=== PATIENT | female | born 1935 | race Caucasian/White ===

== ENCOUNTER 2018-02-21 20:15 | Inpatient (IN) | payer MEDICARE, BC ==
[2018-02-21] MEDS ORDERED: SODIUM CHLORIDE 0.9% 1,000 ML IV STA (20:45)
[2018-02-21] MEDS ORDERED: ONDANSETRON 4 MG/2 ML VIAL IVP STA (20:45)
--- NOTE | 2018-02-21 21:13 | ED ---
General Adult HPI <JeancarlosLam - Last Filed: 02/21/18 22:42> - General Source: patient, family Mode of arrival: wheelchair Limitations: no limitations <Krystin Oliver - Last Filed: 02/21/18 23:00> - General Chief complaint: Shortness of Breath Stated complaint: poss sepsis Time Seen by Provider: 02/21/18 20:27 - History of Present Illness Initial comments: 82-year-old female patient presents to the emergency department today for complaints of generalized weakness and nausea. Patient states that she was treated for pneumonia over the last week with Bactrim, DuoNeb updraft treatments , and prednisone. Patient states that her cough and shortness of breath is better however today she has been feeling increasingly weak and nauseous. Patient denies any current chest pain, shortness of breath, abdominal pain, diarrhea, or constipation. She denies any known fevers or chills. Patient denies any numbness or tingling anywhere. Denies unilateral weakness. She denies headache, blurred vision, or double vision. Patient denies any recent rash, fever, chills, shortness breath, chest pain, abdominal pain, back pain, hematuria, dysuria, urinary urgency, urinary frequency, or any other complaints. (Krystin Oliver) - Related Data Home Medications Medication Instructions Recorded Confirmed Ibuprofen [Motrin Ib] 400 mg PO Q6H PRN 02/21/18 02/21/18 Ipratropium-Albuterol Nebulize 3 ml INHALATION RT-QID PRN 02/21/18 02/21/18 [Duoneb 0.5 mg-3 mg/3 ml Soln] Lisinopril-Hctz 20-25 mg 1 tab PO HS 02/21/18 02/21/18 [Zestoretic 20-25] Simvastatin [Zocor] 10 mg PO HS 02/21/18 02/21/18 Sulfamethox-Tmp 800-160Mg [Bactrim 1 tab PO Q12HR 02/21/18 02/21/18 DS 800-160 mg] Vitamin D(Unknown Dose) 1 tab PO DAILY 02/21/18 02/21/18 Allergies Allergy/AdvReac Type Severity Reaction Status Date / Time No Known Allergies Allergy Verified 02/21/18 20:33 Review of Systems ROS Other: All systems not noted in ROS Statement are negative. <Lam Arshad - Last Filed: 02/21/18 22:42> ROS Other: All systems not noted in ROS Statement are negative. <Krystin Oliver - Last Filed: 02/21/18 23:00> ROS Statement: Those systems with pertinent positive or pertinent negative responses have been documented in the HPI. Past Medical History Past Medical History: Hyperlipidemia, Hypertension History of Any Multi-Drug Resistant Organisms: None Reported Past Surgical History: Adenoidectomy, Appendectomy, Cholecystectomy, Tonsillectomy Additional Past Surgical History / Comment(s): left total knee replacement. ORIF right ankle. Past Psychological History: No Psychological Hx Reported Smoking Status: Never smoker Past Alcohol Use History: None Reported Past Drug Use History: None Reported <Krystin Oliver - Last Filed: 02/21/18 23:00> General Exam Limitations: no limitations General appearance: alert, in no apparent distress, other (This is a well- developed, well-nourished elderly female patient in no acute distress. Vital signs upon presentation are temperature 98.8F, pulse 72, respirations 20, blood pressure 141/73, pulse ox 99% on room air.) Eye exam: Present: normal appearance, PERRL, EOMI. Absent: scleral icterus, conjunctival injection, periorbital swelling ENT exam: Present: normal exam, normal oropharynx, mucous membranes moist Respiratory exam: Present: normal lung sounds bilaterally. Absent: respiratory distress, wheezes, rales, rhonchi, stridor Cardiovascular Exam: Present: regular rate, normal rhythm, normal heart sounds. Absent: systolic murmur, diastolic murmur, rubs, gallop, clicks GI/Abdominal exam: Present: soft, normal bowel sounds. Absent: distended, tenderness, guarding, rebound, rigid Neurological exam: Present: alert, oriented X3, CN II-XII intact Psychiatric exam: Present: normal affect, normal mood Skin exam: Present: warm, dry, intact, normal color. Absent: rash <Krystin Oliver - Last Filed: 02/21/18 23:00> Course <Lam Arshad - Last Filed: 02/21/18 22:42> <Krystin Oliver - Last Filed: 02/21/18 23:00> Vital Signs 02/21/18 02/21/18 20:17 22:16 Temperature 98.8 F Pulse Rate 72 60 Respiratory 20 17 Rate Blood Pressure 141/73 115/52 O2 Sat by Pulse 99 98 Oximetry - Reevaluation(s) Reevaluation #1: 02/21/18 22:42 Patient reevaluated and resting comfortably in bed. Patient and family are updated on results and plan. Case was discussed in detail with Dr. Manzo, who will admit for Dr. bose. (Lam Arshad) Medical Decision Making - Lab Data Result diagrams: 02/21/18 21:07 02/21/18 21:07 <Lam Arshad - Last Filed: 02/21/18 22:42> - Lab Data Result diagrams: 02/21/18 21:07 02/21/18 21:07 - Radiology Data Radiology results: report reviewed, image reviewed <Krystin Oliver - Last Filed: 02/21/18 23:00> - Medical Decision Making 82-year-old female patient presents to the emergency department today for complaints of weakness and nausea. Physical examination is unremarkable. Patient is neurologically intact. Labs reviewed and did show a sodium of 121, chloride of 85, carbon dioxide 18, BUN 22, creatinine 1.2, calcium 10.8, bilirubin 1.4. CK-MB is 3.1. Sodium and chloride findings are acute for the patient. Given patient's symptoms will admit for hyponatremia. We'll provide IV fluids. My attending spoke to Dr. Manzo who agrees to admission. (Krystin Oliver) - Lab Data Lab Results 02/21/18 02/21/18 02/21/18 Range/Units 21:07 21:07 21:07 WBC 9.3 (3.8-10.6) k/uL RBC 4.65 (3.80-5.40) m/uL Hgb 13.8 (11.4-16.0) gm/dL Hct 39.6 (34.0-46.0) % MCV 85.0 (80.0-100.0) fL MCH 29.7 (25.0-35.0) pg MCHC 34.9 (31.0-37.0) g/dL RDW 12.1 (11.5-15.5) % Plt Count 331 (150-450) k/uL Neutrophils % 62 % Lymphocytes % 29 % Monocytes % 7 % Eosinophils % 1 % Basophils % 0 % Neutrophils # 5.7 (1.3-7.7) k/uL Lymphocytes # 2.7 (1.0-4.8) k/uL Monocytes # 0.7 (0-1.0) k/uL Eosinophils # 0.1 (0-0.7) k/uL Basophils # 0.0 (0-0.2) k/uL PT (9.0-12.0) sec INR (<1.2) APTT (22.0-30.0) sec Sodium 121 L (137-145) mmol/L Potassium 4.4 (3.5-5.1) mmol/L Chloride 85 L (98-107) mmol/L Carbon Dioxide 18 L (22-30) mmol/L Anion Gap 18 mmol/L BUN 22 H (7-17) mg/dL Creatinine 1.20 H (0.52-1.04) mg/dL Est GFR (CKD-EPI)AfAm 49 (>60 ml/min/1.73 sqM) Est GFR (CKD-EPI)NonAf 43 (>60 ml/min/1.73 sqM) Glucose 93 (74-99) mg/dL Plasma Lactic Acid Hiram (0.7-2.0) mmol/L Calcium 10.8 H (8.4-10.2) mg/dL Total Bilirubin 1.4 H (0.2-1.3) mg/dL AST 25 (14-36) U/L ALT 25 (9-52) U/L Alkaline Phosphatase 94 (38-126) U/L Total Creatine Kinase 114 (30-135) U/L CK-MB (CK-2) 3.1 H* (0.0-2.4) ng/mL CK-MB (CK-2) Rel Index 2.7 Troponin I <0.012 (0.000-0.034) ng/mL Total Protein 7.2 (6.3-8.2) g/dL Albumin 4.5 (3.5-5.0) g/dL Urine Color Urine Appearance (Clear) Urine pH (5.0-8.0) Ur Specific [place] (1.001-1.035) Urine Protein (Negative) Urine Glucose (UA) (Negative) Urine Ketones (Negative) Urine Blood (Negative) Urine Nitrite (Negative) Urine Bilirubin (Negative) Urine Urobilinogen (<2.0) mg/dL Ur Leukocyte Esterase (Negative) Urine RBC (0-5) /hpf Urine WBC (0-5) /hpf Ur Squamous Epith Cells (0-4) /hpf Urine Bacteria (None) /hpf Urine Mucus (None) /hpf 02/21/18 02/21/18 02/21/18 Range/Units 21:07 21:07 21:07 WBC (3.8-10.6) k/uL RBC (3.80-5.40) m/uL Hgb (11.4-16.0) gm/dL Hct (34.0-46.0) % MCV (80.0-100.0) fL MCH (25.0-35.0) pg MCHC (31.0-37.0) g/dL RDW (11.5-15.5) % Plt Count (150-450) k/uL Neutrophils % % Lymphocytes % % Monocytes % % Eosinophils % % Basophils % % Neutrophils # (1.3-7.7) k/uL Lymphocytes # (1.0-4.8) k/uL Monocytes # (0-1.0) k/uL Eosinophils # (0-0.7) k/uL Basophils # (0-0.2) k/uL PT 10.0 (9.0-12.0) sec INR 1.0 (<1.2) APTT 22.2 (22.0-30.0) sec Sodium (137-145) mmol/L Potassium (3.5-5.1) mmol/L Chloride (98-107) mmol/L Carbon Dioxide (22-30) mmol/L Anion Gap mmol/L BUN (7-17) mg/dL Creatinine (0.52-1.04) mg/dL Est GFR (CKD-EPI)AfAm (>60 ml/min/1.73 sqM) Est GFR (CKD-EPI)NonAf (>60 ml/min/1.73 sqM) Glucose (74-99) mg/dL Plasma Lactic Acid Hiram 1.3 (0.7-2.0) mmol/L Calcium (8.4-10.2) mg/dL Total Bilirubin (0.2-1.3) mg/dL AST (14-36) U/L ALT (9-52) U/L Alkaline Phosphatase (38-126) U/L Total Creatine Kinase (30-135) U/L CK-MB (CK-2) (0.0-2.4) ng/mL CK-MB (CK-2) Rel Index Troponin I (0.000-0.034) ng/mL Total Protein (6.3-8.2) g/dL Albumin (3.5-5.0) g/dL Urine Color Yellow Urine Appearance Clear (Clear) Urine pH 7.0 (5.0-8.0) Ur Specific [place] 1.012 (1.001-1.035) Urine Protein Negative (Negative) Urine Glucose (UA) Negative (Negative) Urine Ketones 1+ H (Negative) Urine Blood Negative (Negative) Urine Nitrite Negative (Negative) Urine Bilirubin Negative (Negative) Urine Urobilinogen 2.0 (<2.0) mg/dL Ur Leukocyte Esterase Small H (Negative) Urine RBC 2 (0-5) /hpf Urine WBC 1 (0-5) /hpf Ur Squamous Epith Cells <1 (0-4) /hpf Urine Bacteria Rare H (None) /hpf Urine Mucus Rare H (None) /hpf - Radiology Data Two-view x-ray of the chest shows no focal airspace opacity, pleural effusion, or pneumothorax. Mediastinal prominence likely due to rotation. The cardiac silhouette size is within normal limits. The osseous structures are intact. Mild multilevel degenerative changes of the thoracic spine are noted. Impression by Dr. Munoz shows no focal airspace disease to suggest pneumonia. Mediastinal prominence likely due to rotation/positioning. (Krystin Oliver) Disposition <Lam Arshad - Last Filed: 02/21/18 22:42> Decision to Admit Reason: Admit from EC Decision Date: 02/21/18 Decision Time: 22:45 <Krystin Oliver - Last Filed: 02/21/18 23:00> Clinical Impression: Hyponatremia, Weakness Disposition: ADMITTED IP TO THIS [facility] Condition: Serious Referrals: Kristyn Morales MD [Primary Care Provider] - 1-2 days
[2018-02-21 21:23] LABS: Basophils % (A) 0 %; Eosinophils # (A) 0.1 k/uL (0-0.7); Eosinophils % (A) 1 %; HCT 39.6 % (34.0-46.0); HGB 13.8 gm/dL (11.4-16.0); Lymphocytes # (A) 2.7 k/uL (1.0-4.8); Lymphocytes % (A) 29 %; MCH 29.7 pg (25.0-35.0); MCHC 34.9 g/dL (31.0-37.0); Mean Platelet Volume 7.6; Monocytes # (A) 0.7 k/uL (0-1.0); Monocytes % (A) 7 %; Neutrophils # (A) 5.7 k/uL (1.3-7.7); Neutrophils % (A) 62 %; Platelet Count 331 k/uL (150-450); RBC 4.65 m/uL (3.80-5.40); RDW 12.1 % (11.5-15.5); WBC 9.3 k/uL (3.8-10.6)
[2018-02-21 21:31] LABS: Partial Thromboplastin Time 22.2 sec (22.0-30.0)
[2018-02-21 21:38] LABS: Albumin 4.5 g/dL (3.5-5.0); Calcium 10.8 mg/dL (8.4-10.2); Potassium 4.4 mmol/L (3.5-5.1); Total Bilirubin 1.4 mg/dL (0.2-1.3); Total Protein 7.2 g/dL (6.3-8.2)
[2018-02-21 21:43] LABS: Appearance,Urine Clear (Clear); Bacteria,Urine Rare /hpf; Bilirubin,Urine Negative (Negative); Blood,Urine Negative (Negative); Color,Urine Yellow; Glucose,Urine (UA) Negative (Negative); Ketones,Urine 1+ (Negative); Leukocyte Esterase,Urine Small (Negative); Mucus,Urine Rare /hpf; Nitrite,Urine Negative (Negative); Protein,Urine Negative (Negative); RBC,Urine 2 /hpf (0-5); Specific Gravity,Urine 1.012 (1.001-1.035); Squamous Epithelial Cell,Urine <1 /hpf (0-4); WBC,Urine 1 /hpf (0-5)
[2018-02-21 21:51] LABS: Creatine Kinase 114 U/L (30-135)
--- NOTE | 2018-02-21 21:58 | XR ---
EXAMINATION TYPE: XR chest 2V DATE OF EXAM: 02/21/2018 COMPARISON: 05/26/2013 HISTORY: Weakness with recent diagnosis of pneumonia per patient history TECHNIQUE: Frontal and lateral views of the chest are obtained. FINDINGS: There is no focal air space opacity, pleural effusion, or pneumothorax seen. Mediastinal p rominence is likely due to rotation. The cardiac silhouette size is within normal limits. The osse ous structures are intact. Mild multilevel degenerative changes of the thoracic spine are noted. IMPRESSION: No focal air space disease to suggest pneumonia. Mediastinal prominence is likely due to rotation/positioning.
[2018-02-21 22:04] LABS: Troponin I <0.012 ng/mL (0.000-0.034)
[2018-02-21 22:06] LABS: Creatine Kinase MB 3.1 ng/mL (0.0-2.4)
[2018-02-21] MEDS ORDERED: NALOXONE 0.4 MG/ML 1 ML VIAL IV PRN (22:41)
[2018-02-21] MEDS ORDERED: SODIUM CHLORIDE 0.9% 1,000 ML IV SCH (22:45)
[2018-02-21] MEDS: SODIUM CHLORIDE 0.9% 1,000 ML IV STA (23:30)
[2018-02-22 00:12] VITALS: BMI 28.3
[2018-02-22 07:58] LABS: Calcium 9.1 mg/dL (8.4-10.2); Potassium 4.4 mmol/L (3.5-5.1)
[2018-02-22] MEDS ORDERED: ONDANSETRON 4 MG/2 ML VIAL IVP PRN (11:11)
[2018-02-22] MEDS: IPRATROPIUM-ALBUTEROL 3 ML NEB INHALATION PRN ×3 (11:12→21:12)
--- NOTE | 2018-02-22 11:15 | P.HPIM ---
History of Present Illness H&P Date: 02/22/18 Chief Complaint: Generalized weakness and nausea This is a 82-year-old female, patient of Dr. Morales. She has a known past medical history of hypertension and hyperlipidemia. Patient was recently treated for pneumonia in the outpatient setting this past week. She was placed on Bactrim prednisone and nebulizer treatments. She completed the Bactrim on Sunday. Patient reports that she had improvement in her cough and shortness of breath. However, she just has been feeling very weak fatigued and low energy level. She states that it takes a lot of effort to walk from the kitchen to the family room she would need to sit and rest from being so tired. She also complained of very not being nauseous and having a lot of watery sensation in her mouth. No actual vomiting. No fever. Occasional chills. Denies any chest pain or shortness of breath. Denies any diarrhea or bowel movement changes. Denies any burning with urination. She was brought into the emergency room by her daughter. She was found to be hyponatremic with a sodium level CXXI. She started on IV fluids and sodium has come up to 123. No evidence of seizure activity. Patient is alert and orientated to 3. She's also dehydrated with a creatinine of 1.2 and chloride low at 85. Patient is on Zestoretic at home. As well as she had just finished Bactrim. The Zestoretic has been placed on hold. Nephrology has been consulted. Chest x-ray showing no pneumonia on does show a mediastinal prominence likely due to patient's rotation. EKG showing sinus bradycardia with a heart rate of 59 and incomplete right bundle branch block. She also reporting a decrease in her appetite. He is not been eating or drinking very much over the last week Review of Systems Please refer to HPI otherwise unremarkable Past Medical History Past Medical History: Hyperlipidemia, Hypertension History of Any Multi-Drug Resistant Organisms: None Reported Past Surgical History: Adenoidectomy, Appendectomy, Cholecystectomy, Tonsillectomy Additional Past Surgical History / Comment(s): left total knee replacement. ORIF right ankle. Past Psychological History: No Psychological Hx Reported Smoking Status: Never smoker Past Alcohol Use History: None Reported Past Drug Use History: None Reported Medications and Allergies Home Medications Medication Instructions Recorded Confirmed Type Ibuprofen [Motrin Ib] 400 mg PO Q6H PRN 02/21/18 02/21/18 History Ipratropium-Albuterol Nebulize 3 ml INHALATION RT-QID PRN 02/21/18 02/21/18 History [Duoneb 0.5 mg-3 mg/3 ml Soln] Lisinopril-Hctz 20-25 mg 1 tab PO HS 02/21/18 02/21/18 History [Zestoretic 20-25] Simvastatin [Zocor] 10 mg PO HS 02/21/18 02/21/18 History Sulfamethox-Tmp 800-160Mg [Bactrim 1 tab PO Q12HR 02/21/18 02/21/18 History DS 800-160 mg] Vitamin D(Unknown Dose) 1 tab PO DAILY 02/21/18 02/21/18 History Allergies Allergy/AdvReac Type Severity Reaction Status Date / Time No Known Allergies Allergy Verified 02/21/18 20:33 Physical Exam Vitals: Vital Signs Temp Pulse Pulse Resp BP BP Pulse Ox 02/22/18 09:17 76 16 02/22/18 07:57 97.8 F 76 16 121/67 98 02/21/18 23:31 97.5 F L 64 17 122/63 95 02/21/18 22:16 60 17 115/52 98 02/21/18 20:17 98.8 F 72 20 141/73 99 Intake and Output 02/21/18 02/22/18 02/22/18 22:59 06:59 14:59 Intake Total 600 240 Balance 600 240 Intake: Intake, IV Titration 600 Amount Sodium Chloride 0.9% 1, 600 000 ml @ 75 mls/hr IV . [id number] STA Rx#:[id number] Oral 240 Other: Voiding Method Toilet Toilet Weight 68.039 kg 68.039 kg Head normocephalic Neck supple Lungs clear to auscultation bilaterally no wheezing or crackles Heart regular rate and rhythm S1-S2, no rub or gallop Abdomen is soft nontender nondistended positive bowel sounds no hepatosplenomegaly Extremities no edema Neuro alert and orientated to 3 Results CBC & Chem 7: 02/21/18 21:07 02/22/18 07:14 Labs: Abnormal Lab Results - Last 24 Hours (Table) 02/21/18 02/21/18 02/21/18 Range/Units 21:07 21:07 21:07 Sodium 121 L (137-145) mmol/L Chloride 85 L (98-107) mmol/L Carbon Dioxide 18 L (22-30) mmol/L BUN 22 H (7-17) mg/dL Creatinine 1.20 H (0.52-1.04) mg/dL Osmolality (280-301) mosm/kg Calcium 10.8 H (8.4-10.2) mg/dL Total Bilirubin 1.4 H (0.2-1.3) mg/dL CK-MB (CK-2) 3.1 H* (0.0-2.4) ng/mL Urine Ketones 1+ H (Negative) Ur Leukocyte Esterase Small H (Negative) Urine Bacteria Rare H (None) /hpf Urine Mucus Rare H (None) /hpf Ur Random Sodium (30-90) mmol/L 02/21/18 02/21/18 02/22/18 Range/Units 21:07 21:07 07:14 Sodium 123 L (137-145) mmol/L Chloride 93 L (98-107) mmol/L Carbon Dioxide 20 L (22-30) mmol/L BUN 18 H (7-17) mg/dL Creatinine 1.08 H (0.52-1.04) mg/dL Osmolality 252 L (280-301) mosm/kg Calcium (8.4-10.2) mg/dL Total Bilirubin (0.2-1.3) mg/dL CK-MB (CK-2) (0.0-2.4) ng/mL Urine Ketones (Negative) Ur Leukocyte Esterase (Negative) Urine Bacteria (None) /hpf Urine Mucus (None) /hpf Ur Random Sodium 135 H (30-90) mmol/L Thrombosis Risk Factor Assmnt - Choose All That Apply Each Factor Represents 1 point: Abnormal pulmonary function (COPD) Each Risk Factor Represents 3 Points: Age 75 years or older Other congenital or acquired thrombophilia - If yes, enter type in comment: No Thrombosis Risk Factor Assessment Total Risk Factor Score: 4 Thrombosis Risk Factor Assessment Level: Moderate Risk Assessment and Plan Assessment: 1. Severe hyponatremia likely contributed to patient's overall weakness: Sodium of 121 possibly related to dehydration, poor oral intake and diuretics. Patient receiving normal saline at 75 mL an hour. Nephrology is consulted. Continue to monitor sodium levels 2. Acute kidney injury: And 1.2 on admission down to 1.08. Continue with IV fluids. Likely secondary to dehydration, poor oral intake, Bactrim and Zestoretic. Nephrology consulted 3. Recent pneumonia: No evidence of pneumonia on chest x-ray. Patient completed treatment of Bactrim, prednisone and nebulizer treatments 4. Essential hypertension on blood pressures are stable. Continue to monitor off of Zestoretic 5. Insomnia: Add Ambien 6. Hyperlipidemia continue statin GI prophylaxis Protonix and DVT prophylaxis subcu heparin Time with Patient: Greater than 30 (Greater than 50% of the total time spent in counseling and coordination of care. I performed an examination of the patient and discussed their management with the physician Pot Liner. I have reviewed the Physician Pot Liner's notes and agree with the documented findings and plan of care)
[2018-02-22] MEDS: SODIUM CHLORIDE 0.9% 1,000 ML IV STA (11:31)
[2018-02-22] MEDS: PANTOPRAZOLE 40 MG TABLET PO SCH (12:03)
[2018-02-22 12:28] LABS: Albumin 3.9 g/dL (3.5-5.0); Calcium 9.4 mg/dL (8.4-10.2); Potassium 4.7 mmol/L (3.5-5.1); Total Bilirubin 1.4 mg/dL (0.2-1.3); Total Protein 6.3 g/dL (6.3-8.2)
--- NOTE | 2018-02-22 15:23 | CONS ---
CONSULTATION REASON FOR CONSULT: Hyponatremia. HISTORY OF PRESENT ILLNESS: The patient is an 82-year-old female who has been very active. She was admitted to the hospital with complaints of not feeling well. She was weak. She was not eating much. She had some abdominal discomfort and some nausea. The patient was maintained on Zestoretic at home. She does not have a significant previous history of hyponatremia, however, her sodium was perhaps low a while ago in [place]. The patient states that she had been trying to drink more water recently since she was not feeling well. She was also started on Bactrim recently as outpatient for upper respiratory tract infection and possible bronchitis. The patient has finished a course of Bactrim. She states that her weakness is better now that she has been on IV fluids. The patient's blood pressure has been slightly on the lower side with systolic 115-122. Patient was given a bolus of normal saline in the ER. Her initial sodium was 121, and she is maintained on saline at 75 mL an hour. Her serum sodium is now at 123 mEq per L this morning. PAST MEDICAL HISTORY: Hypertension and previous history of hypokalemia, hyperlipidemia. PAST SURGICAL HISTORY: Adenoidectomy, appendectomy, cholecystectomy, tonsillectomy, left total knee arthroplasty, ORIF right ankle. SOCIAL HISTORY: Negative for smoking, drug abuse or alcohol abuse. MEDICATIONS: Include Zestoretic, Zocor, vitamin D, recent Bactrim and Motrin occasionally. ALLERGIES: None. REVIEW OF SYSTEMS: As per HPI. Other systems negative. PHYSICAL EXAMINATION: Patient is comfortable, awake, alert, oriented x3. She is not in any acute distress. Blood pressure this morning was 121/67, heart rate 76 per minute. She is afebrile. Examination of the heart S1, S2. Examination of the lungs bilateral breath sounds are heard. Abdomen is soft, nontender. Examination lower extremities shows no evidence of edema. [employer] exam is grossly intact. LAB: Shows sodium 123, potassium 4.4, serum creatinine 1.08, hemoglobin 13.8. UA shows 1+ ketones, no protein or blood is noted. Albumin at 3.9. Chest x-ray from admission shows no focal airspace disease with suggestion of mediastinal prominence. ASSESSMENT: 1. Hyponatremia, hypovolemic, currently improving with saline. However, if the serum sodium does not continue to improve further we need to look into other causes like tea and toast syndrome. The fact that the sodium did not worsen with saline suggests that there is no underlying Syndrome of inappropriate antidiuretic hormone. A urine osmolality and urine sodium has been ordered which is currently pending. I will continue with the saline for now and recheck another sodium level. The patient will be maintained on oral fluid restriction. I will check a cortisol level as well and patient is encouraged to increase her protein intake. 2. Hypertension blood pressure currently controlled. Hold off on thiazide diuretics. 3. Acute kidney injury, prerenal. Continue with IV fluids. PLAN: 1. Continue normal saline. 2. Recheck serum sodium now. 3. Check urine osmolality, urine sodium level. 4. Check random cortisol level. 5. Increase oral protein intake. 6. Avoid thiazide diuretics for now. Thank you for this consultation. We will continue to follow the patient with you during her hospitalization. JA / EWELINAN: [id number] /
[2018-02-22] MEDS: ZOLPIDEM 5 MG TAB PO PRN (21:25)
[2018-02-22] MEDS: HEPARIN SODIUM,PORCINE 5,000 UNIT/ML 1 ML VIAL SQ SCH (21:26)
[2018-02-22] MEDS: ATORVASTATIN 10 MG TAB PO SCH (21:50)
[2018-02-23 07:43] LABS: Basophils % (A) 0 %; Eosinophils # (A) 0.1 k/uL (0-0.7); Eosinophils % (A) 2 %; HCT 36.6 % (34.0-46.0); HGB 12.8 gm/dL (11.4-16.0); Lymphocytes # (A) 1.8 k/uL (1.0-4.8); Lymphocytes % (A) 23 %; MCH 30.6 pg (25.0-35.0); MCHC 34.9 g/dL (31.0-37.0); MCV 87.8 fL (80.0-100.0); Mean Platelet Volume 6.9; Monocytes # (A) 0.4 k/uL (0-1.0); Monocytes % (A) 5 %; Neutrophils # (A) 5.5 k/uL (1.3-7.7); Neutrophils % (A) 68 %; Platelet Count 315 k/uL (150-450); RBC 4.17 m/uL (3.80-5.40); RDW 12.3 % (11.5-15.5); WBC 8.1 k/uL (3.8-10.6)
[2018-02-23 07:44] LABS: Albumin 3.8 g/dL (3.5-5.0); Calcium 9.1 mg/dL (8.4-10.2); Potassium 4.2 mmol/L (3.5-5.1); Total Bilirubin 1.2 mg/dL (0.2-1.3); Total Protein 6.1 g/dL (6.3-8.2)
[2018-02-23] MEDS: HEPARIN SODIUM,PORCINE 5,000 UNIT/ML 1 ML VIAL SQ SCH ×2 (07:44→21:46)
[2018-02-23] MEDS: PANTOPRAZOLE 40 MG TABLET PO SCH (07:44)
[2018-02-23] MEDS: IPRATROPIUM-ALBUTEROL 3 ML NEB INHALATION PRN ×3 (08:11→20:07)
[2018-02-23] MEDS ORDERED: SODIUM CHLORIDE TAB 1 GM TAB PO STA (11:56)
--- NOTE | 2018-02-23 16:24 | PN ---
PROGRESS NOTE Patient is seen for followup for hyponatremia. She was hypovolemic initially. Her sodium improved from 121 to 124, but did not improve further. Last night the saline was discontinued and his serum sodium is up to 127. Patient is maintained on fluid restriction. Her urine osmolality was 311, which is not significantly high, although it is not low as well. She may have underlying SIADH. PHYSICAL EXAMINATION: Blood pressure was this morning 111/74. Patient is afebrile. Heart rate 96 per minute. Examination of the heart, S1, S2. Examination of the lungs, bilateral breath sounds are heard. Abdomen is soft, nontender. Examination of the lower extremities shows no evidence of edema. [employer] exam is grossly intact. LABS: Show sodium 127, potassium 4.2, serum creatinine 0.93, hemoglobin 12.8 g/dL. ASSESSMENT: 1. Hyponatremia, initially hypovolemic. However, serum sodium did not improve further with saline last night. Therefore it was discontinued. Serum cortisol level was borderline. Urine osmolality is slightly on the high side. There is consideration for possible underlying SIADH versus tea and toast syndrome. Patient is advised to increase protein intake. I will also give her 1 dose of sodium chloride tabs and continue with fluid restriction. We will repeat labs in a.m. 2. Hypertension. Blood pressure is currently not high. 3. Dyslipidemia, maintained on Lipitor. 4. Gastroesophageal reflux disease, currently on Protonix. 5. History of hypokalemia previously, currently within normal range. PLAN: Sodium chloride tablet. Repeat labs in a.m. Maintain fluid restriction. Increased protein intake. MMODL / IJN: [id number] /
--- NOTE | 2018-02-23 16:49 | P.PN ---
Subjective Progress Note Date: 02/23/18 This is a 82-year-old female, patient of Dr. Morales. She has a known past medical history of hypertension and hyperlipidemia. Patient was recently treated for pneumonia in the outpatient setting this past week. She was placed on Bactrim prednisone and nebulizer treatments. She completed the Bactrim on Sunday. Patient reports that she had improvement in her cough and shortness of breath. However, she just has been feeling very weak fatigued and low energy level. She states that it takes a lot of effort to walk from the kitchen to the family room she would need to sit and rest from being so tired. She also complained of very not being nauseous and having a lot of watery sensation in her mouth. No actual vomiting. No fever. Occasional chills. Denies any chest pain or shortness of breath. Denies any diarrhea or bowel movement changes. Denies any burning with urination. She was brought into the emergency room by her daughter. She was found to be hyponatremic with a sodium level CXXI. She started on IV fluids and sodium has come up to 123. No evidence of seizure activity. Patient is alert and orientated to 3. She's also dehydrated with a creatinine of 1.2 and chloride low at 85. Patient is on Zestoretic at home. As well as she had just finished Bactrim. The Zestoretic has been placed on hold. Nephrology has been consulted. Chest x-ray showing no pneumonia on does show a mediastinal prominence likely due to patient's rotation. EKG showing sinus bradycardia with a heart rate of 59 and incomplete right bundle branch block. She also reporting a decrease in her appetite. He is not been eating or drinking very much over the last week. On 02/23/2018 patient is feeling better she is alert and oriented 3 in no apparent distress seen and examined with family at bedside she denies any pain or discomfort no fever or chills no headache no dizziness no nausea or vomiting no abdominal pain no diarrhea and no urinary symptoms. Objective - Vital Signs Vital signs: Vital Signs Temp 97.9 F 02/23/18 15:00 Pulse 85 02/23/18 15:00 Resp 18 02/23/18 15:00 BP 111/56 02/23/18 15:00 Pulse Ox 98 02/23/18 15:00 Intake & Output 02/22/18 02/23/18 02/23/18 18:59 06:59 18:59 Intake Total 1165 1430 500 Balance 1165 1430 500 Weight 68.039 kg Intake: Intake, IV Titration 525 350 Amount Sodium Chloride 0.9% 1, 525 350 000 ml @ 75 mls/hr IV . [id number] STA Rx#:[id number] Oral 640 1080 500 Other: Voiding Method Toilet Toilet Toilet # Voids 2 2 - Exam HEENT head normocephalic and atraumatic Neck is supple no JVD no goiter no lymphadenopathy Chest exam reveals a few scattered crackles no wheezing Cardiac exam reveals regular heart sounds S1 and S2 no gallops no murmurs Abdomen is soft nontender no organomegaly with normal bowel sounds Extremity exam reveals no edema no cyanosis or clubbing Neurological examination reveals no gross focal deficit - Labs CBC & Chem 7: 02/23/18 07:15 02/23/18 07:15 Labs: Abnormal Lab Results - Last 24 Hours (Table) 02/22/18 02/23/18 Range/Units 20:00 07:15 Sodium 124 L 127 L (137-145) mmol/L Chloride 96 L (98-107) mmol/L Carbon Dioxide 20 L (22-30) mmol/L Total Protein 6.1 L (6.3-8.2) g/dL Assessment and Plan Plan: 1. Severe hyponatremia likely contributed to patient's overall weakness: Sodium of 121 possibly related to dehydration, poor oral intake and diuretics. Patient was seen by nephrology, she was given 1 g of sodium, repeat labs in a.m. 2. Acute kidney injury: And 1.2 on admission down to 1.08. Continue with IV fluids. Likely secondary to dehydration, poor oral intake, Bactrim and Zestoretic. Nephrology consulted 3. Recent pneumonia: No evidence of pneumonia on chest x-ray. Patient completed treatment of Bactrim, prednisone and nebulizer treatments 4. Essential hypertension on blood pressures are stable. Continue to monitor off of Zestoretic 5. Insomnia: Add Ambien 6. Hyperlipidemia continue statin
[2018-02-23] MEDS: ZOLPIDEM 5 MG TAB PO PRN (21:46)
[2018-02-23] MEDS: ATORVASTATIN 10 MG TAB PO SCH (21:46)
[2018-02-24 07:36] LABS: Basophils % (A) 0 %; Eosinophils # (A) 0.2 k/uL (0-0.7); Eosinophils % (A) 3 %; HCT 35.4 % (34.0-46.0); HGB 11.8 gm/dL (11.4-16.0); Lymphocytes # (A) 1.8 k/uL (1.0-4.8); Lymphocytes % (A) 26 %; MCH 29.4 pg (25.0-35.0); MCHC 33.2 g/dL (31.0-37.0); MCV 88.6 fL (80.0-100.0); Mean Platelet Volume 7.2; Monocytes # (A) 0.3 k/uL (0-1.0); Monocytes % (A) 5 %; Neutrophils # (A) 4.4 k/uL (1.3-7.7); Neutrophils % (A) 65 %; Platelet Count 261 k/uL (150-450); RBC 3.99 m/uL (3.80-5.40); RDW 12.2 % (11.5-15.5); WBC 6.8 k/uL (3.8-10.6)
[2018-02-24] MEDS: HEPARIN SODIUM,PORCINE 5,000 UNIT/ML 1 ML VIAL SQ SCH (07:48)
[2018-02-24] MEDS: PANTOPRAZOLE 40 MG TABLET PO SCH (07:48)
[2018-02-24 07:49] LABS: Albumin 3.6 g/dL (3.5-5.0); Calcium 9.1 mg/dL (8.4-10.2); Potassium 4.5 mmol/L (3.5-5.1); Total Bilirubin 0.9 mg/dL (0.2-1.3); Total Protein 5.8 g/dL (6.3-8.2)
[2018-02-24 08:38] VITALS: BP 121/63; PULSE 65; RESP 16; TEMP 97.7
--- NOTE | 2018-02-24 13:01 | PN ---
PROGRESS NOTE DATE OF SERVICE: 02/24/2018. HISTORY: The patient is seen for followup for hyponatremia. Her serum sodium has improved to 130. The patient was given 1 dose of sodium chloride tablet yesterday. She is maintained on fluid restriction as well. PHYSICAL EXAMINATION: On examination today, blood pressure is 121/63, heart rate 65 per minute. She is afebrile. Examination of the heart S1, S2. Examination lungs bilateral breath sounds are heard. Abdomen is soft, nontender. Examination lower extremities shows no evidence of edema. [employer] exam is grossly intact. LABS: Show sodium 130, potassium 4.5, BUN 18, serum creatinine 0.87. Serum cortisol was 12. ASSESSMENT: Hyponatremia initially hypovolemic, currently euvolemic, improved with fluid restriction and 1 dose of sodium chloride tablets. The patient can be discharged with fluid restriction with plan for repeat labs to be done in 2 days post discharge. The patient may need follow up as outpatient. In the meantime, she needs to avoid the use of thiazides and increase oral protein intake. MMODL / IJN: [id number] /
--- NOTE | 2018-02-24 13:46 | P.DS ---
Providers Date of admission: 02/21/18 22:42 Expected date of discharge: 02/24/18 Attending physician: Santiago Manzo Consults: 02/22/18 08:57 Consult Physician Routine Consulting Provider: Basilio Pino Consult Reason/Comments: hyponatremia Do you want consulting provider notified?: Yes Primary care physician: Kristyn Morales Hospital Course: Diagnoses on discharge: 1. Severe hyponatremia likely contributed to patient's overall weakness: Sodium of 121 possibly related to dehydration, poor oral intake and diuretics. Patient was seen by nephrology, she was given 1 g of sodium orally, she was placed on fluid restriction and sodium level improved to 130 at the time of discharge. Patient will need to have a blood test in the next 2 days, and possible follow up with nephrology Dr. Teresa 2. Acute kidney injury: And 1.2 on admission down to 0.87 at the time of discharge . 3. Recent pneumonia: No evidence of pneumonia on chest x-ray. Patient completed treatment of Bactrim, prednisone and nebulizer treatments as outpatient 4. Essential hypertension on blood pressures are stable. Continue to monitor off of Zestoretic, BP was still low at the time of discharge, at this time no need for any blood pressure medications, follow-up closely as outpatient 5. Hyperlipidemia continue statin Hospital course: This is a 82-year-old female, patient of Dr. Morales. She has a known past medical history of hypertension and hyperlipidemia. Patient was recently treated for pneumonia in the outpatient setting this past week. She was placed on Bactrim prednisone and nebulizer treatments. She completed the Bactrim on Sunday. Patient reports that she had improvement in her cough and shortness of breath. However, she just has been feeling very weak fatigued and low energy level. She states that it takes a lot of effort to walk from the kitchen to the family room she would need to sit and rest from being so tired. She also complained of very not being nauseous and having a lot of watery sensation in her mouth. No actual vomiting. No fever. Occasional chills. Denies any chest pain or shortness of breath. Denies any diarrhea or bowel movement changes. Denies any burning with urination. She was brought into the emergency room by her daughter. She was found to be hyponatremic with a sodium level CXXI. She started on IV fluids and sodium has come up to 123. No evidence of seizure activity. Patient is alert and orientated to 3. She's also dehydrated with a creatinine of 1.2 and chloride low at 85. Patient is on Zestoretic at home. As well as she had just finished Bactrim. The Zestoretic has been placed on hold. Nephrology has been consulted. Chest x-ray showing no pneumonia on does show a mediastinal prominence likely due to patient's rotation. EKG showing sinus bradycardia with a heart rate of 59 and incomplete right bundle branch block. She also reporting a decrease in her appetite. He is not been eating or drinking very much over the last week. On 02/23/2018 patient is feeling better she is alert and oriented 3 in no apparent distress seen and examined with family at bedside she denies any pain or discomfort no fever or chills no headache no dizziness no nausea or vomiting no abdominal pain no diarrhea and no urinary symptoms. On 02/24/2018 patient is alert and oriented 3 she is feeling well she has no symptoms sodium is up to 130 and creatinine is down to 0.87 she was evaluated by nephrology and cleared for discharge Zestoretic was discontinued blood pressure is on the low side follow-up was Dr. Morales in 2-3 days patient should have blood test again to assess kidney function and sodium level if needed she can have a follow-up was Dr. Teresa Patient Condition at Discharge: Serious Plan - Discharge Summary Discharge Rx Participant: Yes New Discharge Prescriptions: Continue Simvastatin [Zocor] 10 mg PO HS Ipratropium-Albuterol Nebulize [Duoneb 0.5 mg-3 mg/3 ml Soln] 3 ml INHALATION RT-QID PRN PRN Reason: Shortness Of Breath Discontinued Ibuprofen [Motrin Ib] 400 mg PO Q6H PRN PRN Reason: Pain Sulfamethox-Tmp 800-160Mg [Bactrim DS 800-160 mg] 1 tab PO Q12HR Lisinopril-Hctz 20-25 mg [Zestoretic 20-25] 1 tab PO HS Vitamin D(Unknown Dose) 1 tab PO DAILY Discharge Medication List Ipratropium-Albuterol Nebulize [Duoneb 0.5 mg-3 mg/3 ml Soln] 3 ml INHALATION RT -QID PRN 02/21/18 [History] Simvastatin [Zocor] 10 mg PO HS 02/21/18 [History] Follow up Appointment(s)/Referral(s): Kristyn Morales MD [Primary Care Provider] - 1-2 days (Patient to call Dr. Morales's office Sunday to schedule follow appointment. The office is closed at time of discharge. ) Patient Instructions/Handouts: Hyponatremia (DC), Weakness (GEN)
== END 2018-02-24 14:00 | disposition home or self-care (01) | DRG 641 ==
LOC: EC 20:15 → 5MS5E 22:42 → 5ONC 02-22 14:42
PROVIDERS: ADMIT Internal Medicine; ATTEND Internal Medicine
DX: E87.1 Hypo-osmolality and hyponatremia (principal); N17.9 Acute kidney failure, unspecified; E86.0 Dehydration; I45.10 Unspecified right bundle-branch block; E78.5 Hyperlipidemia, unspecified; I10 Essential (primary) hypertension; E86.1 Hypovolemia; K21.9 Gastro-esophageal reflux disease without esophagitis; G47.00 Insomnia, unspecified; Z79.899 Other long term (current) drug therapy; Z90.49 Acquired absence of other specified parts of digestive tract; Z96.652 Presence of left artificial knee joint; Z87.01 Personal history of pneumonia (recurrent)
CPT/HCPCS: 36415; 71046; 80048; 80053; 81001; 82533; 82550; 82553; 83605; 83930; 83935; 84295; 84300; 84484; 85025; 85610; 85730; 93005; 94640; 94760; 96361; 96374; 99285

== ENCOUNTER 2018-11-27 11:36 | Inpatient (IN) | payer MEDICARE, BC ==
[2018-11-27] MEDS ORDERED: SODIUM CHLORIDE 0.9% 1,000 ML IV STA (12:12)
[2018-11-27] MEDS ORDERED: SODIUM CHLORIDE 0.9% 500 ML 500 ML IV STA (12:15)
--- NOTE | 2018-11-27 12:15 | ED ---
Weakness HPI - General Chief complaint: Weakness Stated complaint: Weakness Time Seen by Provider: 11/27/18 11:36 Source: patient, family, EMS, RN notes reviewed Mode of arrival: EMS Limitations: no limitations - History of Present Illness Initial comments: This is a 83-year-old female who just returned from [place] last evening who presents this morning with complaints of generalized weakness that occurred about 1 hour prior to arrival. She denies any chest pain fevers chills nausea vomiting sweats. She states she's been drinking a lot of water but not eating much food over the past week this is confirmed by her family. Additionally she presented last year with similar symptoms and was found to be hyponatremic. No focal weakness she does have some lightheadedness with upright positioning. No blindness no cough phlegm production dysuria hematuria. MD Complaint: generalized weakness - Related Data Home Medications Medication Instructions Recorded Confirmed Simvastatin [Zocor] 10 mg PO HS 02/21/18 11/27/18 Aspirin 325 mg PO DAILY 11/27/18 11/27/18 Cholecalciferol (Vitamin D3) 2,000 unit PO DAILY 11/27/18 11/27/18 [Vitamin D3] Ibuprofen [Motrin] 800 mg PO DAILY PRN 11/27/18 11/27/18 Lisinopril/Hydrochlorothiazide 1 tab PO HS 11/27/18 11/27/18 [Zestoretic 20-25] Allergies Allergy/AdvReac Type Severity Reaction Status Date / Time No Known Allergies Allergy Verified 11/27/18 12:29 Review of Systems ROS Statement: Those systems with pertinent positive or pertinent negative responses have been documented in the HPI. ROS Other: All systems not noted in ROS Statement are negative. Past Medical History Past Medical History: Hyperlipidemia, Hypertension History of Any Multi-Drug Resistant Organisms: None Reported Past Surgical History: Adenoidectomy, Appendectomy, Cholecystectomy, Tonsillectomy Additional Past Surgical History / Comment(s): left total knee replacement. ORIF right ankle. Past Psychological History: No Psychological Hx Reported Smoking Status: Never smoker Past Alcohol Use History: None Reported Past Drug Use History: None Reported General Exam - General Exam Comments Initial Comments: This is a well-developed well-nourished awake alert oriented 3 female Limitations: no limitations General appearance: alert, lethargic (Slight lethargy) Head exam: Present: atraumatic, normocephalic, normal inspection Eye exam: Present: normal appearance, PERRL, EOMI. Absent: scleral icterus, conjunctival injection, periorbital swelling ENT exam: Present: mucous membranes dry Neck exam: Present: normal inspection, full ROM, other (No stridor JVD or bruits ). Absent: tenderness, meningismus, lymphadenopathy Respiratory exam: Present: normal lung sounds bilaterally. Absent: respiratory distress, wheezes, rales, rhonchi, stridor Cardiovascular Exam: Present: regular rate, normal rhythm, normal heart sounds. Absent: systolic murmur, diastolic murmur, rubs, gallop, clicks GI/Abdominal exam: Present: soft, normal bowel sounds. Absent: distended, tenderness, guarding, rebound, rigid, bruit, pulsatile mass Extremities exam: Present: normal inspection, full ROM, normal capillary refill. Absent: tenderness, pedal edema, joint swelling, calf tenderness Back exam: Present: normal inspection Neurological exam: Present: alert, oriented X3, CN II-XII intact Psychiatric exam: Present: normal affect, normal mood Skin exam: Present: warm, dry, intact, normal color. Absent: rash Course Vital Signs 11/27/18 11/27/18 11/27/18 11:53 12:00 12:30 Temperature 97.4 F L Pulse Rate 53 L 53 L 55 L Respiratory 18 19 17 Rate Blood Pressure 93/53 93/53 104/69 O2 Sat by Pulse 97 96 98 Oximetry 11/27/18 11/27/18 11/27/18 13:00 13:30 14:00 Temperature Pulse Rate 60 58 L 63 Respiratory 18 20 19 Rate Blood Pressure 106/62 99/78 110/61 O2 Sat by Pulse 97 97 98 Oximetry Medical Decision Making - Medical Decision Making I did discuss findings with patient family members as well as with Dr. Manzo who was in the emergency department. Patient be admitted for evaluation and treatment of weakness hyponatremia dehydration - Lab Data Result diagrams: 11/27/18 11:47 11/27/18 11:47 Lab Results 11/27/18 11/27/18 11/27/18 Range/Units 11:47 11:47 11:47 WBC 9.0 (3.8-10.6) k/uL RBC 4.07 (3.80-5.40) m/uL Hgb 12.6 (11.4-16.0) gm/dL Hct 35.6 (34.0-46.0) % MCV 87.5 (80.0-100.0) fL MCH 30.9 (25.0-35.0) pg MCHC 35.3 (31.0-37.0) g/dL RDW 12.7 (11.5-15.5) % Plt Count 236 (150-450) k/uL Neutrophils % 83 % Lymphocytes % 10 % Monocytes % 3 % Eosinophils % 3 % Basophils % 0 % Neutrophils # 7.5 (1.3-7.7) k/uL Lymphocytes # 0.9 L (1.0-4.8) k/uL Monocytes # 0.3 (0-1.0) k/uL Eosinophils # 0.2 (0-0.7) k/uL Basophils # 0.0 (0-0.2) k/uL D-Dimer (<0.60) mg/L FEU Sodium 122 L (137-145) mmol/L Potassium 3.6 (3.5-5.1) mmol/L Chloride 87 L (98-107) mmol/L Carbon Dioxide 25 (22-30) mmol/L Anion Gap 10 mmol/L BUN 25 H (7-17) mg/dL Creatinine 1.03 (0.52-1.04) mg/dL Est GFR (CKD-EPI)AfAm 59 (>60 ml/min/1.73 sqM) Est GFR (CKD-EPI)NonAf 51 (>60 ml/min/1.73 sqM) Glucose 131 H (74-99) mg/dL Calcium 9.1 (8.4-10.2) mg/dL Magnesium 1.9 (1.6-2.3) mg/dL Total Bilirubin 1.5 H (0.2-1.3) mg/dL AST 32 (14-36) U/L ALT 29 (9-52) U/L Alkaline Phosphatase 64 (38-126) U/L Total Creatine Kinase 323 H (30-135) U/L CK-MB (CK-2) 4.5 H (0.0-2.4) ng/mL CK-MB (CK-2) Rel Index 1.4 Troponin I <0.012 (0.000-0.034) ng/mL Total Protein 6.4 (6.3-8.2) g/dL Albumin 4.0 (3.5-5.0) g/dL 11/27/18 Range/Units 11:47 WBC (3.8-10.6) k/uL RBC (3.80-5.40) m/uL Hgb (11.4-16.0) gm/dL Hct (34.0-46.0) % MCV (80.0-100.0) fL MCH (25.0-35.0) pg MCHC (31.0-37.0) g/dL RDW (11.5-15.5) % Plt Count (150-450) k/uL Neutrophils % % Lymphocytes % % Monocytes % % Eosinophils % % Basophils % % Neutrophils # (1.3-7.7) k/uL Lymphocytes # (1.0-4.8) k/uL Monocytes # (0-1.0) k/uL Eosinophils # (0-0.7) k/uL Basophils # (0-0.2) k/uL D-Dimer 9.82 H (<0.60) mg/L FEU Sodium (137-145) mmol/L Potassium (3.5-5.1) mmol/L Chloride (98-107) mmol/L Carbon Dioxide (22-30) mmol/L Anion Gap mmol/L BUN (7-17) mg/dL Creatinine (0.52-1.04) mg/dL Est GFR (CKD-EPI)AfAm (>60 ml/min/1.73 sqM) Est GFR (CKD-EPI)NonAf (>60 ml/min/1.73 sqM) Glucose (74-99) mg/dL Calcium (8.4-10.2) mg/dL Magnesium (1.6-2.3) mg/dL Total Bilirubin (0.2-1.3) mg/dL AST (14-36) U/L ALT (9-52) U/L Alkaline Phosphatase (38-126) U/L Total Creatine Kinase (30-135) U/L CK-MB (CK-2) (0.0-2.4) ng/mL CK-MB (CK-2) Rel Index Troponin I (0.000-0.034) ng/mL Total Protein (6.3-8.2) g/dL Albumin (3.5-5.0) g/dL - Radiology Data Radiology results: report reviewed (Did review the imaging and reports no evidence of pulmonary emboli no acute findings.), image reviewed Disposition Clinical Impression: Hyponatremia syndrome, Weakness, Dehydration, Hypotensive episode Disposition: ADMITTED IP TO THIS [facility] Condition: Stable Referrals: Kristyn Morales MD [Primary Care Provider] - 1-2 days
[2018-11-27 12:30] LABS: Basophils % (A) 0 %; Eosinophils # (A) 0.2 k/uL (0-0.7); Eosinophils % (A) 3 %; HCT 35.6 % (34.0-46.0); HGB 12.6 gm/dL (11.4-16.0); Lymphocytes # (A) 0.9 k/uL (1.0-4.8); Lymphocytes % (A) 10 %; MCH 30.9 pg (25.0-35.0); MCHC 35.3 g/dL (31.0-37.0); MCV 87.5 fL (80.0-100.0); Mean Platelet Volume 6.9; Monocytes # (A) 0.3 k/uL (0-1.0); Monocytes % (A) 3 %; Neutrophils # (A) 7.5 k/uL (1.3-7.7); Neutrophils % (A) 83 %; Platelet Count 236 k/uL (150-450); RBC 4.07 m/uL (3.80-5.40); RDW 12.7 % (11.5-15.5)
[2018-11-27 12:47] LABS: Calcium 9.1 mg/dL (8.4-10.2); Magnesium 1.9 mg/dL (1.6-2.3); Total Bilirubin 1.5 mg/dL (0.2-1.3); Total Protein 6.4 g/dL (6.3-8.2)
[2018-11-27 12:49] LABS: Creatine Kinase 323 U/L (30-135)
[2018-11-27 13:01] LABS: Creatine Kinase MB 4.5 ng/mL (0.0-2.4); Troponin I <0.012 ng/mL (0.000-0.034)
[2018-11-27 13:02] LABS: Potassium 3.6 mmol/L (3.5-5.1)
--- NOTE | 2018-11-27 13:11 | XR ---
EXAMINATION TYPE: XR chest 2V DATE OF EXAM: 11/27/2018 COMPARISON: Prior chest x-ray 02/21/2018 HISTORY: Cough, syncope TECHNIQUE: Frontal and lateral views of the chest are obtained. FINDINGS: There is no significant interval change. There are cardiac leads. Cardiac mediastinal silh ouette, pulmonary vascularity and german are not significantly changed. Linear density towards the left lower lung is stable and likely represents scarring. No evident airspace disease, pneumothorax, or p leural effusion. Arthropathy noted within the shoulders. Likely there are synovial osteochondromatosi s in the left shoulder. Prominent lung volume may be indicative of COPD. Aorta is dense. IMPRESSION: No acute cardiopulmonary process.
--- NOTE | 2018-11-27 14:27 | CT ---
CT CHEST FOR PULMONARY EMBOLISM. EXAMINATION TYPE: CT angio chest DATE OF EXAM: 11/27/2018 INDICATION: Weakness CT DLP: 244.1 mGycm, Automated exposure control for dose reduction was used. CONTRAST: Patient injected with 100 ml mL of Isovue 370. COMPARISON: None TECHNIQUE: CT of the chest is performed on a spiral scan at 2 mm thick sections. Study is performed with intravenous contrast timed for evaluation for pulmonary embolism. This will limit additional po rtions of the evaluation. 3-D MIP images reconstructed by the technologist are reviewed on the compu ter in the coronal and sagittal planes. FINDINGS: No persistent filling defects are evident to suggest an acute pulmonary embolism. No mediastinal or hilar adenopathy enlarged by CT criteria is evident. The ascending aorta diameter at the level of the main pulmonary artery is 4.0 cm. The main pulmonary artery diameter at the bifur cation is 2.9 cm. There is reflux of contrast into the superior portion inferior vena cava. No right heart strain is identified otherwise. Some narrowing of the proximal left main pulmonary artery may b e present. Diameter remains however prominent at 1.8 cm, this is of uncertain clinical significance. No pulmonary hypertension. Lung windows are clear. Limited CT section through the upper abdomen are unremarkable. IMPRESSIONS: 1. No acute pulmonary embolism.
[2018-11-27] MEDS ORDERED: NALOXONE 0.4 MG/ML 1 ML VIAL IV PRN (15:14)
[2018-11-27] MEDS ORDERED: IBUPROFEN 800 MG TAB PO PRN (15:17)
[2018-11-27 15:23] LABS: Appearance,Urine Clear (Clear); Bilirubin,Urine Negative (Negative); Blood,Urine Negative (Negative); Color,Urine Yellow; Glucose,Urine (UA) Negative (Negative); Ketones,Urine Negative (Negative); Leukocyte Esterase,Urine Negative (Negative); Nitrite,Urine Negative (Negative); PH, Urine 5.5 (5.0-8.0); Protein,Urine Negative (Negative); Specific Gravity,Urine 1.016 (1.001-1.035); Urobilinogen,Urine <2.0 mg/dL (<2.0)
--- NOTE | 2018-11-27 16:49 | P.HPIM ---
History of Present Illness H&P Date: 11/27/18 Shell Santiago is an 83-year-old female patient of Dr. Morales who presented to [facility] emergency room with a chief complaint of lightheadedness and presyncope. Patient stated that she was at home when she felt lightheaded and felt that she was going to pass out, she laid down on the floor for several minutes she try to get up however she was still very lightheaded, she decided to come to emergency room. Patient states that she just returned from a trip to [place] where she had minimal oral intake however she drank a lot of water and had only 1 alcoholic drink during her trip. She was evaluated in emergency room and was found to have severe hyponatremia with sodium of 122, she was also found to have an elevated d-dimer at 9.8, CT angiogram of the chest was done in emergency room and was negative for pulmonary embolism, she was started on IV fluid normal saline, and was admitted to telemetry floor, she was also started on Lovenox 40 mg subcu daily, bilateral lower extremity Doppler was ordered to rule out lower extremity DVT. Patient stated that about 1 year ago she had an episode of hyponatremia and was treated with IV fluid, and has had normal sodium level since then. Patient has known history of hypertension she is maintained on lisinopril with hydrochlorothiazide 20/25 mg once daily. Past Medical History Past Medical History: Hyperlipidemia, Hypertension History of Any Multi-Drug Resistant Organisms: None Reported Past Surgical History: Adenoidectomy, Appendectomy, Cholecystectomy, Tonsillectomy Additional Past Surgical History / Comment(s): left total knee replacement. ORIF right ankle. Past Psychological History: No Psychological Hx Reported Smoking Status: Never smoker Past Alcohol Use History: None Reported Past Drug Use History: None Reported Medications and Allergies Home Medications Medication Instructions Recorded Confirmed Type Simvastatin [Zocor] 10 mg PO HS 02/21/18 11/27/18 History Aspirin 325 mg PO DAILY 11/27/18 11/27/18 History Cholecalciferol (Vitamin D3) 2,000 unit PO DAILY 11/27/18 11/27/18 History [Vitamin D3] Ibuprofen [Motrin] 800 mg PO DAILY PRN 11/27/18 11/27/18 History Lisinopril/Hydrochlorothiazide 1 tab PO HS 11/27/18 11/27/18 History [Zestoretic 20-25] Allergies Allergy/AdvReac Type Severity Reaction Status Date / Time No Known Allergies Allergy Verified 11/27/18 12:29 Physical Exam Vitals: Vital Signs Temp Pulse Resp BP Pulse Ox 11/27/18 16:00 64 18 107/80 97 11/27/18 15:00 63 19 106/72 95 11/27/18 14:30 58 L 26 H 96/78 97 11/27/18 14:00 63 19 110/61 98 11/27/18 13:30 58 L 20 99/78 97 11/27/18 13:00 60 18 106/62 97 11/27/18 12:30 55 L 17 104/69 98 11/27/18 12:00 53 L 19 93/53 96 11/27/18 11:53 97.4 F L 53 L 18 93/53 97 Intake and Output 11/27/18 11/27/18 11/27/18 06:59 14:59 22:59 Other: Weight 68.039 kg Patient is alert and oriented 3 in no apparent distress HEENT head normocephalic and atraumatic Neck is supple no JVD no goiter no lymphadenopathy and no carotid bruit Chest exam reveals a few scattered crackles bilaterally no wheezing Cardiac exam reveals regular heart sounds S1 and S2 no gallops no murmurs Abdomen is soft nontender no organomegaly with normal bowel sounds Extremity exam reveals no edema no cyanosis or clubbing Neurological examination reveals no gross focal deficits Results CBC & Chem 7: 11/27/18 11:47 11/27/18 11:47 Labs: Abnormal Lab Results - Last 24 Hours (Table) 11/27/18 11/27/18 11/27/18 Range/Units 11:47 11:47 11:47 Lymphocytes # 0.9 L (1.0-4.8) k/uL D-Dimer (<0.60) mg/L FEU Sodium 122 L (137-145) mmol/L Chloride 87 L (98-107) mmol/L BUN 25 H (7-17) mg/dL Glucose 131 H (74-99) mg/dL Total Bilirubin 1.5 H (0.2-1.3) mg/dL Total Creatine Kinase 323 H (30-135) U/L CK-MB (CK-2) 4.5 H (0.0-2.4) ng/mL 11/27/18 Range/Units 11:47 Lymphocytes # (1.0-4.8) k/uL D-Dimer 9.82 H (<0.60) mg/L FEU Sodium (137-145) mmol/L Chloride (98-107) mmol/L BUN (7-17) mg/dL Glucose (74-99) mg/dL Total Bilirubin (0.2-1.3) mg/dL Total Creatine Kinase (30-135) U/L CK-MB (CK-2) (0.0-2.4) ng/mL Assessment and Plan Plan: #1 lightheadedness with presyncope #2 severe hyponatremia #3 underlying history of hypertension #4 underlying history of hyperlipidemia #5 elevated d-dimer At this time patient will be admitted to telemetry floor She was started on normal saline IV fluid We'll discontinue hydrochlorothiazide and continue only with lisinopril for blood pressure management Will check bilateral lower extremity Doppler to rule out DVT Patient was started on Lovenox 40 mg subcu daily Will monitor closely
[2018-11-27] MEDS: ENOXAPARIN 40 MG/0.4 ML SYRINGE SQ SCH (17:00)
[2018-11-27] MEDS ORDERED: LISINOPRIL-HCTZ 20-25 MG 1 EACH TAB PO SCH (21:00)
[2018-11-27] MEDS: ATORVASTATIN 10 MG TAB PO SCH (21:32)
[2018-11-27] MEDS: ZOLPIDEM 5 MG TAB PO PRN (21:32)
--- NOTE | 2018-11-28 00:19 | US ---
EXAM: US Duplex Bilateral Upper Extremity Veins CLINICAL HISTORY: ITS.REASON US Reason: elevated D-dimer. recent travel TECHNIQUE: Real-time duplex ultrasound scan of the bilateral upper extremity veins integrating B-mode two-dimensional vascular structure, Doppler spectral analysis, color flow Doppler imaging and compression. COMPARISON: No relevant prior studies available. FINDINGS: Right deep veins: Unremarkable. No DVT in the right internal jugular, subclavian, axillary, or brachial veins. The veins demonstrate normal color flow, are normally compressible, with normal phasic flow and/or augmentation response. Right superficial veins: Unremarkable. No thrombus in the visualized right basilic and cephalic veins. Left deep veins: Unremarkable. No DVT in the left internal jugular, subclavian, axillary, or brachial veins. The veins demonstrate normal color flow, are normally compressible, with normal phasic flow and/or augmentation response. Left superficial veins: Unremarkable. No thrombus in the visualized left basilic and cephalic veins. Soft tissues: No acute findings. IMPRESSION: Normal bilateral upper extremity duplex venous ultrasound.
--- NOTE | 2018-11-28 00:19 | US ---
EXAM: US Duplex Bilateral Lower Extremity Veins CLINICAL HISTORY: ITS.REASON US Reason: Pain TECHNIQUE: Real-time duplex ultrasound scan of the bilateral lower extremity veins integrating B-mode two-dimensional vascular structure, Doppler spectral analysis, color flow Doppler imaging and compression. COMPARISON: No relevant prior studies available. FINDINGS: Right deep veins: Unremarkable. No DVT in the right common femoral, femoral, proximal deep femoral or popliteal veins. The veins demonstrate normal color flow, are normally compressible, with normal phasic flow and/or augmentation response. Right superficial veins: Unremarkable. No thrombus in the visualized right great saphenous vein. Left deep veins: Unremarkable. No DVT in the left common femoral, femoral, proximal deep femoral or popliteal veins. The veins demonstrate normal color flow, are normally compressible, with normal phasic flow and/or augmentation response. Left superficial veins: Unremarkable. No thrombus in the visualized left great saphenous vein. Soft tissues: No acute findings. No popliteal cyst. IMPRESSION: Normal bilateral lower extremity duplex venous ultrasound.
[2018-11-28 08:21] LABS: Basophils % (A) 0 %; Eosinophils # (A) 0.1 k/uL (0-0.7); Eosinophils % (A) 1 %; HCT 33.3 % (34.0-46.0); HGB 11.5 gm/dL (11.4-16.0); Lymphocytes # (A) 1.1 k/uL (1.0-4.8); Lymphocytes % (A) 12 %; MCH 30.7 pg (25.0-35.0); MCHC 34.5 g/dL (31.0-37.0); MCV 88.8 fL (80.0-100.0); Mean Platelet Volume 6.8; Monocytes # (A) 0.4 k/uL (0-1.0); Monocytes % (A) 4 %; Neutrophils # (A) 7.4 k/uL (1.3-7.7); Neutrophils % (A) 82 %; Platelet Count 244 k/uL (150-450); RBC 3.74 m/uL (3.80-5.40)
[2018-11-28 08:22] LABS: Albumin 3.6 g/dL (3.5-5.0); Potassium 3.5 mmol/L (3.5-5.1); Total Protein 5.9 g/dL (6.3-8.2)
[2018-11-28] MEDS: ASPIRIN 325 MG TAB PO SCH (08:25)
[2018-11-28] MEDS: ENOXAPARIN 40 MG/0.4 ML SYRINGE SQ SCH (08:25)
[2018-11-28] MEDS: CHOLECALCIFEROL 1,000 UNIT TAB PO SCH (08:25)
--- NOTE | 2018-11-28 10:40 | P.PN ---
Subjective Progress Note Date: 11/28/18 Shell Santiago is an 83-year-old female patient of Dr. Morales who presented to [facility] emergency room with a chief complaint of lightheadedness and presyncope. Patient stated that she was at home when she felt lightheaded and felt that she was going to pass out, she laid down on the floor for several minutes she try to get up however she was still very lightheaded, she decided to come to emergency room. Patient states that she just returned from a trip to [place] where she had minimal oral intake however she drank a lot of water and had only 1 alcoholic drink during her trip. She was evaluated in emergency room and was found to have severe hyponatremia with sodium of 122, she was also found to have an elevated d-dimer at 9.8, CT angiogram of the chest was done in emergency room and was negative for pulmonary embolism, she was started on IV fluid normal saline, and was admitted to telemetry floor, she was also started on Lovenox 40 mg subcu daily, bilateral lower extremity Doppler was ordered to rule out lower extremity DVT. Patient stated that about 1 year ago she had an episode of hyponatremia and was treated with IV fluid, and has had normal sodium level since then. Patient has known history of hypertension she is maintained on lisinopril with hydrochlorothiazide 20/25 mg once daily. On 11/28/2018 patient states she feels significantly improved. Sodium is improving to 129. Patient is currently maintained on normal saline at 75. Patient's appetite has improved. Patient denies nausea vomiting or diarrhea. Patient denies any urinary burning or frequency. Patient denies chest pain or shortness breath. Objective - Vital Signs Vital signs: Vital Signs Temp 98.2 F 11/28/18 07:47 Pulse 66 11/28/18 09:20 Resp 18 11/28/18 07:47 BP 91/58 11/28/18 07:47 Pulse Ox 95 11/28/18 07:47 Intake & Output 11/27/18 11/28/18 11/28/18 18:59 06:59 18:59 Intake Total 1150 Balance 1150 Weight 68.039 kg Intake: Intake, IV Titration 650 Amount Sodium Chloride 0.9% 1, 650 000 ml @ 75 mls/hr IV . [id number] STA Rx#:[id number] Oral 500 Other: Voiding Method Toilet Toilet # Voids 1 - Exam Patient is alert and oriented 3 in no apparent distress HEENT head normocephalic and atraumatic Neck is supple no JVD no goiter no lymphadenopathy and no carotid bruit Chest exam reveals a few scattered crackles bilaterally no wheezing Cardiac exam reveals regular heart sounds S1 and S2 no gallops no murmurs Abdomen is soft nontender no organomegaly with normal bowel sounds Extremity exam reveals no edema no cyanosis or clubbing Neurological examination reveals no gross focal deficits - Labs CBC & Chem 7: 11/28/18 07:22 11/28/18 07:22 Labs: Abnormal Lab Results - Last 24 Hours (Table) 11/27/18 11/27/18 11/27/18 Range/Units 11:47 11:47 11:47 RBC (3.80-5.40) m/uL Hct (34.0-46.0) % Lymphocytes # 0.9 L (1.0-4.8) k/uL D-Dimer (<0.60) mg/L FEU Sodium 122 L (137-145) mmol/L Chloride 87 L (98-107) mmol/L BUN 25 H (7-17) mg/dL Glucose 131 H (74-99) mg/dL Total Bilirubin 1.5 H (0.2-1.3) mg/dL Total Creatine Kinase 323 H (30-135) U/L CK-MB (CK-2) 4.5 H (0.0-2.4) ng/mL Total Protein (6.3-8.2) g/dL 11/27/18 11/28/18 11/28/18 Range/Units 11:47 07:22 07:22 RBC 3.74 L (3.80-5.40) m/uL Hct 33.3 L (34.0-46.0) % Lymphocytes # (1.0-4.8) k/uL D-Dimer 9.82 H (<0.60) mg/L FEU Sodium 129 L (137-145) mmol/L Chloride 95 L (98-107) mmol/L BUN (7-17) mg/dL Glucose (74-99) mg/dL Total Bilirubin (0.2-1.3) mg/dL Total Creatine Kinase (30-135) U/L CK-MB (CK-2) (0.0-2.4) ng/mL Total Protein 5.9 L (6.3-8.2) g/dL Assessment and Plan Assessment: #1 lightheadedness with presyncope #2 severe hyponatremia #3 underlying history of hypertension #4 underlying history of hyperlipidemia #5 elevated d-dimer Sodium improving to 129. Patient seen on normal saline at 75. Patient has been up walking around with out dizziness or lightheadedness. Venous Doppler completed showing negative for DVT DVT prophylaxis Lovenox. GI prophylaxis Protonix I performed an examination of the patient and discussed their management with the Nurse Practitioner. I have reviewed the Nurse Practitioner's notes and agree with the documented findings and plan of care
[2018-11-28] MEDS: LISINOPRIL 20 MG TAB PO SCH (11:18)
[2018-11-28] MEDS: ZOLPIDEM 5 MG TAB PO PRN (22:40)
[2018-11-28] MEDS: ATORVASTATIN 10 MG TAB PO SCH (22:40)
[2018-11-29 07:23] VITALS: RESP 16
[2018-11-29] MEDS ORDERED: PANTOPRAZOLE 40 MG TABLET PO SCH (07:30)
[2018-11-29 08:02] LABS: Basophils % (A) 0 %; Eosinophils # (A) 0.1 k/uL (0-0.7); Eosinophils % (A) 1 %; HCT 31.9 % (34.0-46.0); HGB 10.5 gm/dL (11.4-16.0); Lymphocytes # (A) 1.3 k/uL (1.0-4.8); Lymphocytes % (A) 17 %; MCH 30.1 pg (25.0-35.0); Mean Platelet Volume 7.4; Monocytes # (A) 0.3 k/uL (0-1.0); Monocytes % (A) 4 %; Neutrophils # (A) 5.9 k/uL (1.3-7.7); Neutrophils % (A) 76 %; Platelet Count 202 k/uL (150-450); WBC 7.8 k/uL (3.8-10.6)
[2018-11-29 08:15] LABS: Albumin 3.1 g/dL (3.5-5.0); Calcium 8.7 mg/dL (8.4-10.2); Total Bilirubin 0.9 mg/dL (0.2-1.3); Total Protein 5.3 g/dL (6.3-8.2)
[2018-11-29] MEDS: ASPIRIN 325 MG TAB PO SCH (09:01)
[2018-11-29] MEDS: LISINOPRIL 20 MG TAB PO SCH (09:01)
[2018-11-29] MEDS: CHOLECALCIFEROL 1,000 UNIT TAB PO SCH (09:01)
[2018-11-29] MEDS: ENOXAPARIN 40 MG/0.4 ML SYRINGE SQ SCH (09:01)
[2018-11-29 10:57] VITALS: BP 121/85; PULSE 60; TEMP 97.5
--- NOTE | 2018-11-29 10:57 | P.DS ---
Providers Date of admission: 11/27/18 15:14 Expected date of discharge: 11/29/18 Attending physician: Santiago Manzo Primary care physician: Kristyn Morales Hospital Course: Discharge diagnosis #1 lightheadedness with presyncope #2 severe hyponatremia #3 underlying history of hypertension #4 underlying history of hyperlipidemia #5 elevated d-dimer. Computed tomography scan completed showing no acute pulmonary embolism. Venous Doppler completed of lower extreme any showing normal bilateral lower showing a duplex venous ultrasound. Venous Doppler completed of M he showing normal bilateral upper extremity duplex venous ultrasound Sodium has improved to 133. Patient's lisinopril with hydrochlorothiazide has been DC'd. Patient will be DC'd home on just lisinopril. Blood pressure adequately controlled at this time. Repeat CMP ordered for 3 days and patient advised to follow-up with her PCP Hospital course Shell Santiago is an 83-year-old female patient of Dr. Morales who presented to [facility] emergency room with a chief complaint of lightheadedness and presyncope. Patient stated that she was at home when she felt lightheaded and felt that she was going to pass out, she laid down on the floor for several minutes she try to get up however she was still very lightheaded, she decided to come to emergency room. Patient states that she just returned from a trip to [place] where she had minimal oral intake however she drank a lot of water and had only 1 alcoholic drink during her trip. She was evaluated in emergency room and was found to have severe hyponatremia with sodium of 122, she was also found to have an elevated d-dimer at 9.8, CT angiogram of the chest was done in emergency room and was negative for pulmonary embolism, she was started on IV fluid normal saline, and was admitted to telemetry floor, she was also started on Lovenox 40 mg subcu daily, bilateral lower extremity Doppler was ordered to rule out lower extremity DVT. Patient stated that about 1 year ago she had an episode of hyponatremia and was treated with IV fluid, and has had normal sodium level since then. Patient has known history of hypertension she is maintained on lisinopril with hydrochlorothiazide 20/25 mg once daily. On 11/28/2018 patient states she feels significantly improved. Sodium is improving to 129. Patient is currently maintained on normal saline at 75. Patient's appetite has improved. Patient denies nausea vomiting or diarrhea. Patient denies any urinary burning or frequency. Patient denies chest pain or shortness breath. On 11/29/2018 patient's alert and oriented 3. Patient states she feels significantly improved. Sodium 133. Patient has been up ambulating without any difficulty. Patient educated at length about patient's home medication of lisinopril with hydrochlorothiazide been DC'd. Patient advised to throw medication today. Patient will be. New prescription for just lisinopril. Patient also advised to follow-up closely with her PCP. Repeat CMP has been ordered for 3 days. Patient at this time denies nausea vomiting or diarrhea. Patient denies chest pain or shortness of breath. Patient denies any urinary burning or frequency. I performed an examination of the patient and discussed their management with the Nurse Practitioner. I have reviewed the Nurse Practitioner's notes and agree with the documented findings and plan of care Patient Condition at Discharge: Stable Plan - Discharge Summary Discharge Rx Participant: Yes New Discharge Prescriptions: New Lisinopril [Zestril] 20 mg PO DAILY 30 Days #30 tab Continue Simvastatin [Zocor] 10 mg PO HS Aspirin 325 mg PO DAILY Ibuprofen [Motrin] 800 mg PO DAILY PRN PRN Reason: Pain Cholecalciferol (Vitamin D3) [Vitamin D3] 2,000 unit PO DAILY Discontinued Lisinopril/Hydrochlorothiazide [Zestoretic 20-25] 1 tab PO HS Discharge Medication List Simvastatin [Zocor] 10 mg PO HS 02/21/18 [History] Aspirin 325 mg PO DAILY 11/27/18 [History] Cholecalciferol (Vitamin D3) [Vitamin D3] 2,000 unit PO DAILY 11/27/18 [History] Ibuprofen [Motrin] 800 mg PO DAILY PRN 11/27/18 [History] Lisinopril [Zestril] 20 mg PO DAILY 30 Days #30 tab 11/29/18 [Rx] Follow up Appointment(s)/Referral(s): Kristyn Morales MD [Primary Care Provider] - 1-2 days Ambulatory/Diagnostic Orders: Comprehensive Metabolic Panel [LAB.AMB] Time Frame: 3 Days, Location: None Selected
== END 2018-11-29 11:40 | disposition home or self-care (01) | DRG 641 ==
LOC: EC 11:36 → 3NMEDONC 15:14
PROVIDERS: ADMIT Internal Medicine; ATTEND Internal Medicine
DX: E86.0 Dehydration (principal); E87.1 Hypo-osmolality and hyponatremia; E78.5 Hyperlipidemia, unspecified; I10 Essential (primary) hypertension; R79.1 Abnormal coagulation profile; Z79.82 Long term (current) use of aspirin; Z96.652 Presence of left artificial knee joint; Z90.49 Acquired absence of other specified parts of digestive tract; Z79.1 Long term (current) use of non-steroidal anti-inflammatories (NSAID); Z79.899 Other long term (current) drug therapy
CPT/HCPCS: 36415; 71046; 71275; 80053; 81003; 82550; 82553; 83735; 84484; 85025; 85379; 93005; 93970; 96360; 96361; 99285

== ENCOUNTER → 2023-04-05 | Outpatient (CLI) | payer MEDICARE, BC ==
--- NOTE | 2023-04-05 14:46 | XR ---
EXAMINATION TYPE: XR chest 2V DATE OF EXAM: 04/05/2023 COMPARISON: 11/27/2018 TECHNIQUE: PA and lateral views submitted. HISTORY: Shortness of breath FINDINGS: The lungs are clear and there is no pneumothorax, pleural effusion, or focal pneumonia. Heart size normal and no overt failure. Osseous structures demonstrate hypertrophic and degenerative changes of the spine. Atherosclerotic change of the aorta. Diffuse osteopenia with arthropathy of the shoulders. Linear change left midlung. Hyperinflation suggests COPD. Chronic rib cage deformity on the right grady ggested correlate for previous trauma. IMPRESSION: 1. No acute process.
== END | disposition home or self-care (01) ==
LOC: RADXRMAIN 13:51
PROVIDERS: ATTEND Family Medicine
DX: R06.02 Shortness of breath (principal)
CPT/HCPCS: 71046